=== PATIENT | female | born 1960 | race Hispanic/Latino ===

== ENCOUNTER → 2022-09-11 | Outpatient (CLI) | payer OTHER ==
[~2022-09-11] MED LIST: IOHEXOL-350 50ML VIAL IV ONE
== END | disposition home or self-care (01) ==
LOC: RAH 13:16
PROVIDERS: ATTEND Internal Medicine
DX: G43.909 Migraine, unspecified, not intractable, without status migrainosus (principal)
CPT/HCPCS: 70470; Q9967

== ENCOUNTER → 2023-02-26 | Outpatient (CLI) | payer SELFPAY | END | disposition home or self-care (01) | LOC: RAH 13:33 | PROVIDERS: ATTEND Internal Medicine | DX: Z13.6 Encounter for screening for cardiovascular disorders (principal) | CPT/HCPCS: 75571 ==

== ENCOUNTER 2023-07-10 07:05 | Day surgery (SDC) | payer OTHER ==
[2023-07-04 12:43] LABS: APPEARANCE,URINE CLEAR (CLEAR); BILIRUBIN,URINE NEGATIVE (NEGATIVE); COLOR,URINE LIGHT-YELLOW (YELLOW); GLUCOSE, URINE (UA) NEGATIVE (NEGATIVE); KETONES,URINE NEGATIVE (NEGATIVE); LEUKOCYTE ESTERASE ,URINE NEGATIVE Leu/uL (NEGATIVE); NITRATE,URINE NEGATIVE (NEGATIVE); PH,URINE 5.5 (5.0-8.0); PROTEIN,URINE NEGATIVE (NEGATIVE); UROBILINOGEN,URINE 0.2 mg/dL (0.2-1.0)
[2023-07-04 12:44] LABS: ADD UA MICROSCOPIC YES
[2023-07-04 12:48] LABS: BASOPHILS # (AUTO) 0.03 K/uL (0.00-0.20); BASOPHILS % (AUTO) 0.3 % (0.0-5.0); EOSINOPHILS # (AUTO) 0.14 K/uL (0.00-0.70); EOSINOPHILS % (AUTO) 1.3 % (0.0-8.0); HEMATOCRIT 41.8 % (36-48); IMMATURE GRANULOCYTE ABSOLUTE 0.02 K/uL (0-1); LYMPHOCYTES % (AUTO) 18.6 % (21.0-51.0); MEAN CORPUSCULAR HEMOGLOBIN 29.6 pg (27.0-33.0); MEAN CORPUSCULAR HGB CONC 33.5 g/dL (32.0-36.0); MEAN CORPUSCULAR VOLUME 88.4 fL (79-99); MONOCYTES # (AUTO) 0.6 K/uL (0.1-1.0); MONOCYTES % (AUTO) 5.4 % (3.0-13.0); NEUTROPHILS # (AUTO) 7.9 K/uL (1.8-7.7); NEUTROPHILS % (AUTO) 74.2 % (40.0-77.0); PLATELET COUNT (AUTO) 269 K/uL (130-400); RED BLOOD CELL COUNT(AUTO) 4.73 MIL/uL (4.00-5.50); RED CELL DISTRIBUTION WIDTH 12.5 % (11.0-15.5); WHITE BLOOD COUNT (AUTO) 10.7 K/uL (4.8-10.8)
[2023-07-04 12:48] LABS: BACTERIA,URINE RARE /HPF (None Seen); MUCUS,URINE RARE LPF (None Seen); SQUAMOUS EPITHELIAL CELL,UR RARE /HPF (0-2)
[2023-07-04 12:51] LABS: CREATININE 0.7 mg/dL (0.5-1.5); POTASSIUM 4.1 mmol/L (3.5-5.1)
[2023-07-04 12:54] LABS: INR <= 0.93 (0.85-1.15); PROTHROMBIN TIME 10.6 SEC (9.6-11.6)
[2023-07-04 12:55] VITALS: BP 166/88; PULSE 72; RESP 16
[2023-07-04 12:55] LABS: PARTIAL THROMBOPLASTIN TIME 28.4 SEC (26.3-35.5)
[2023-07-10] VITALS (16 sets, daily range): BP systolic 115–153; BP diastolic 50–73; PULSE 67–86; RESP 15–18
[~2023-07-10] VITALS: Ht 160 cm; Wt 88.1 kg
[~2023-07-10 07:05] MED LIST changes: -IOHEXOL-350 50ML VIAL IV ONE; +ROSU5TAB12 PO
[2023-07-10] MEDS ORDERED: DEXAMETHASONE SOD PHOSPHATE 10MG/ML 1ML VIAL ONE (08:01)
[2023-07-10] MEDS ORDERED: GLYCOPYRROLATE 0.2 MG/ML 5 ML VIAL ONE (08:01)
[2023-07-10] MEDS ORDERED: LIDOCAINE PF 100MG/5ML (2%) SYRINGE 5ML ONE (08:01)
[2023-07-10] MEDS ORDERED: MIDAZOLAM HCL 1 MG/ML 2ML VIAL ONE (08:01)
[2023-07-10] MEDS ORDERED: NEOSTIGMINE METHYLSULFATE 1MG/ML IV ONE (08:01)
[2023-07-10] MEDS ORDERED: ONDANSETRON 4MG INJ ONE (08:01)
[2023-07-10] MEDS ORDERED: PROPOFOL 10 MG/ML 20ML VIAL IV ONE (08:01)
[2023-07-10] MEDS ORDERED: SUCCINYLCHOLINE CHLORIDE 20 MG/ML 10 ML VIAL ONE (08:01)
[2023-07-10] MEDS ORDERED: ROCURONIUM BROMIDE 10MG/1ML 5ML VL ONE (08:02)
[2023-07-10] MEDS ORDERED: FENTANYL CITRATE PF 50 MCG/1 ML 2ML VIAL ONE ×2 (08:02→10:53)
[2023-07-10] MEDS ORDERED: PHENYLEPHRINE HCL 10 MG/ML 1ML VIAL IV ONE (08:05)
[2023-07-10] MEDS: LACTATED RINGERS 1000ML 1,000 ML IV ONE (08:19)
[2023-07-10] MEDS: CEFAZOLIN SODIUM 2 GM VIAL ONE (08:20)
[2023-07-10] MEDS: GENTAMICIN 80 MG/NS 100 ML PB 100 ML IV ONE (08:20)
[2023-07-10] MEDS ORDERED: MELA5TAB20 PO (08:33)
[2023-07-10] MEDS ORDERED: ZINC50TA64 PO (08:33)
[2023-07-10] MEDS ORDERED: VITAMIN B6 PO (08:33)
[2023-07-10] MEDS ORDERED: MAGN250T10 PO (08:33)
[2023-07-10] MEDS ORDERED: ASCO500C18 PO (08:33)
[2023-07-10] MEDS ORDERED: CYAN-106 PO (08:33)
[2023-07-10] MEDS ORDERED: CINN500C PO (08:33)
[2023-07-10] MEDS ORDERED: CHOL100046 PO (08:33)
[2023-07-10] MEDS ORDERED: VITA800012 PO (08:33)
[2023-07-10] MEDS ORDERED: MULT-1283 PO (08:33)
[2023-07-10] MEDS ORDERED: BLAC40CA PO (08:33)
[2023-07-10] MEDS ORDERED: LUTE20CA PO (08:33)
[2023-07-10] MEDS ORDERED: CRANBERRY PO (08:33)
[2023-07-10] MEDS ORDERED: CEFAZOLIN SODIUM 1 GM VIAL ONE ×2 (10:11→10:37)
[2023-07-10] MEDS ORDERED: ESTROGENS,CONJUGATED 0.625 MG/GM 42.5 GM VAG CRM VG ONE (10:12)
[2023-07-10] MEDS ORDERED: LIDOCAINE 1%-EPI 1:100,000 20 ML VIAL ONE (10:12)
[2023-07-10] MEDS: CEFAZOLIN SODIUM 2 GM VIAL IVPB ONE (10:25)
[2023-07-10] MEDS: CEFAZOLIN SODIUM 1 GM VIAL IRRIG ONE (10:55)
[2023-07-10] MEDS: LIDOCAINE 1%-EPI 1:100,000 20 ML VIAL IJ ONE (10:55)
== END 2023-07-10 13:30 | disposition home or self-care (01) ==
LOC: DAH 07:05
PROVIDERS: ATTEND Urology
DX: N39.46 Mixed incontinence (principal); E78.5 Hyperlipidemia, unspecified; E66.9 Obesity, unspecified; Z68.34 Body mass index [BMI] 34.0-34.9, adult; Z82.49 Family history of ischemic heart disease and other diseases of the circulatory system; Z83.3 Family history of diabetes mellitus; Z91.040 Latex allergy status; Z88.0 Allergy status to penicillin; Z88.8 Allergy status to other drugs, medicaments and biological substances; Z79.02 Long term (current) use of antithrombotics/antiplatelets; Z79.899 Other long term (current) drug therapy
CPT/HCPCS: 80048; 85025; 85610; 85730; 87088; 81001; 36415; 71045; 93005; 51992; A4600; A6260; A4663; J7030; A4215 ×2; A4452; A4344; C1771; J7120; J3010 ×2; J0690 ×5; J3490 ×4; J1100; J0330; J2001; J2250; J2704; J2405; J2710; J2371; J1580; A4649; A4930; A4223; A4222; A4221

== ENCOUNTER 2023-09-06 18:16 | Emergency (ER) | payer OTHER ==
[~2023-09-06] VITALS: Ht 160 cm; Wt 88.0 kg
[~2023-09-06 18:16] MED LIST changes: +ASCO500C18 PO; +BLAC40CA PO; +CHOL100046 PO; +CINN500C PO; +CRANBERRY PO; +CYAN-106 PO; +LUTE20CA PO; +MAGN250T10 PO; +MELA5TAB20 PO; +MULT-1283 PO; -ROSU5TAB12 PO; +ROSU5TAB43 PO; +VITA800012 PO; +VITAMIN B6 PO; +ZINC50TA64 PO
[2023-09-06 19:04] LABS: BASOPHILS # (AUTO) 0.06 K/uL (0.00-0.20); BASOPHILS % (AUTO) 0.4 % (0.0-5.0); EOSINOPHILS # (AUTO) 0.03 K/uL (0.00-0.70); EOSINOPHILS % (AUTO) 0.2 % (0.0-8.0); HEMATOCRIT 40.1 % (36-48); IMMATURE GRANULOCYTE ABSOLUTE 0.12 K/uL (0-1); LYMPHOCYTES # (AUTO) 1.4 K/uL (1.0-4.8); LYMPHOCYTES % (AUTO) 9.6 % (21.0-51.0); MEAN CORPUSCULAR HEMOGLOBIN 29.6 pg (27.0-33.0); MEAN CORPUSCULAR HGB CONC 33.4 g/dL (32.0-36.0); MEAN CORPUSCULAR VOLUME 88.5 fL (79-99); MONOCYTES # (AUTO) 0.6 K/uL (0.1-1.0); MONOCYTES % (AUTO) 4.4 % (3.0-13.0); NEUTROPHILS # (AUTO) 11.9 K/uL (1.8-7.7); NEUTROPHILS % (AUTO) 84.5 % (40.0-77.0); PLATELET COUNT (AUTO) 211 K/uL (130-400); RED BLOOD CELL COUNT(AUTO) 4.53 MIL/uL (4.00-5.50); RED CELL DISTRIBUTION WIDTH 12.2 % (11.0-15.5); WHITE BLOOD COUNT (AUTO) 14.1 K/uL (4.8-10.8)
[2023-09-06 19:21] VITALS: BP 135/43; PULSE 82; RESP 16; O2SAT 100
[2023-09-06 19:22] LABS: CREATININE 0.8 mg/dL (0.5-1.0)
[2023-09-06 19:26] LABS: ALBUMIN 3.7 g/dL (3.5-5.0); BILIRUBIN,TOTAL 0.5 mg/dL (0.2-1.0)
[2023-09-06] MEDS: 0.9%NACL 1000ML 1,000 ML IV ONE (19:34)
[2023-09-06] MEDS: MORPHINE 4 MG SYG IVP ONE (19:35)
[2023-09-06] MEDS: ONDANSETRON 4MG INJ IVP ONE (19:36)
[2023-09-06] MEDS: LEVOFLOXACIN 750 MG/D5W 150ML BAG IV ONE (19:38)
[2023-09-06] MEDS ORDERED: IOHEXOL-350 75 ML VIAL IV ONE (20:00)
[2023-09-06] MEDS: TAMSULOSIN HCL 0.4 MG CAP.ER.24H PO ONE (21:09)
[2023-09-06 21:32] LABS: ADD UA MICROSCOPIC YES; APPEARANCE,URINE CLEAR (CLEAR); BILIRUBIN,URINE NEGATIVE (NEGATIVE); COLOR,URINE LIGHT-YELLOW (YELLOW); GLUCOSE, URINE (UA) NEGATIVE (NEGATIVE); KETONES,URINE 40 mg/dL (NEGATIVE); LEUKOCYTE ESTERASE ,URINE NEGATIVE Leu/uL (NEGATIVE); NITRATE,URINE NEGATIVE (NEGATIVE); OCCULT BLOOD,URINE MODERATE (NEGATIVE); PH,URINE 6.5 (5.0-8.0); PROTEIN,URINE NEGATIVE (NEGATIVE); UROBILINOGEN,URINE 0.2 mg/dL (0.2-1.0)
[2023-09-06 21:34] LABS: BACTERIA,URINE RARE /HPF (None Seen); MUCUS,URINE RARE LPF (None Seen); RBC,URINE 26-50 /HPF (0-1); SQUAMOUS EPITHELIAL CELL,UR RARE /HPF (0-2)
[2023-09-06] MEDS ORDERED: TAMS-1 PO (21:59)
[2023-09-06] MEDS ORDERED: LEVO-70 PO (21:59)
[2023-09-06] MEDS ORDERED: IBUP-2077 PO (21:59)
== END 2023-09-06 22:10 | disposition home or self-care (01) ==
LOC: EDH 18:16
DX: N20.0 Calculus of kidney (principal); N23 Unspecified renal colic
CPT/HCPCS: 99285; 74177; 96365; 96366; 84484; 80053; 83690; 85025; 81001; 36415; 93005; J1956; J7030; J2405; J2270; Q9967

== ENCOUNTER → 2025-02-25 | Outpatient (CLI) | payer OTHER ==
[~2025-02-25] MED LIST changes: +IBUP-2077 PO; +LEVO-70 PO; -ROSU5TAB43 PO; +ROSU5TAB51 PO; +TAMS-55 PO
--- NOTE | 2025-02-25 17:19 | HMCSR ---
APPROVED REPORT EXAM: Two-dimensional and M-mode echocardiogram with Doppler and color Doppler. INDICATION ICD: 138.0 systolic murmur 2D Dimensions RVDd 3.9 cm LVEF(%) 69.3 (>50%) LVED Vol(simp.) 83.0 mL IVSd 0.6 (0.7-1.1cm) FS(%) 39 % LVES Vol(simp.) 32.0 mL LVDd 4.8 (3.8-5.6cm) LA (2D) 4.1 (1.6-4.0cm) LVEF(%, simp.) 61 % PWd 0.8 (0.7-1.1cm) Ao Root(2D) 2.7 (2.0-3.7cm) LA ESV INDEX (BP) 24.65 mL/m2 IVSs 1.1 cm LVOT diam 2.0 (1.8-2.4cm) LVDs 2.9 (2.5-4.0cm) PWs 1.3 cm M-Mode Dimensions EPSS 0.4 cm LA (MM) 4.3 (1.6-4.0cm) Ao Root(MM) 2.5 (2.0-3.7cm) Aortic Valve AoV Vmax 1.8 m/s Ao Peak GR 13.2 mmHg LVOT Vmax 1.2 m/s AoV VTI 0.4 m Ao Mean GR 7.3 mmHg LVOT VTI 0.24 m MICHAEL (VMAX) 2.04 cm2 MICHAEL (VTI) 2.0 cm2 Mitral Valve MV E Vmax 76.8 cm/s DECEL Time 202 ms MV A Vmax 74.8 cm/s P 1/2 T 40 ms E/A ratio 1.0 MVA (PHT) 5.5 cm2 TDI E/E' Medial 12.9 E/E' Lateral 11.2 Medial E' Peak V 5.94 cm/s Lateral E' Peak V 6.88 cm/s Pulmonary Valve PV Vmax 1.2 m/s PV VTI 0.26 m PV Mean GR 3.6 mmHg PV Peak GR 5.9 mmHg Left Ventricle The left ventricle is normal size. There is normal LV segmental wall motion. There is normal left ventricular wall thickness. LVEF is 60-65%. The left ventricular diastolic function is normal. Right Ventricle The right ventricle is normal size. The right ventricular systolic function is normal. Atria The left atrium size is normal. The right atrium size is normal. Aortic Valve Aortic valve is trileaflet, thickened and opens well. No aortic regurgitation is present. There is no aortic valvular stenosis. Mitral Valve The mitral valve is normal in structure. There is trivial mitral valve regurgitation noted. There is no mitral valve stenosis. Tricuspid Valve The tricuspid valve is normal in structure. There is trivial tricuspid valve regurgitation noted. Pulmonic Valve The pulmonary valve is normal in structure. There is trace of pulmonic valvular regurgitation. Great Vessels The aortic root is normal in size. The IVC is normal in size and collapses >50% with inspiration. Pericardium There is no pericardial effusion. Other Information Quality : Technically difficult study due to body habitus Conclusion LVEF is 60-65%. The aortic root is normal in size. There is no pericardial effusion.
== END | disposition home or self-care (01) ==
LOC: RAH 12:48
PROVIDERS: ATTEND Internal Medicine
DX: I08.3 Combined rheumatic disorders of mitral, aortic and tricuspid valves (principal)
CPT/HCPCS: 93306

== ENCOUNTER 2025-03-01 06:19 | Day surgery (SDC) | payer OTHER ==
[~2025-03-01] VITALS: Ht 160 cm; Wt 88.9 kg
[2025-03-01] VITALS (11 sets, daily range): BP systolic 129–167; BP diastolic 65–81; PULSE 73–83; RESP 14–18; TEMP 97.1–98.5
[~2025-03-01 06:19] MED LIST changes: -CRANBERRY PO; -IBUP-2077 PO; -LEVO-70 PO; -TAMS-55 PO
[2025-03-01] MEDS: 0.9%NACL 1000ML 1,000 ML IV ONE (06:56)
== END 2025-03-01 09:17 | disposition home or self-care (01) ==
LOC: DAH 06:19 → ENDO 06:19
PROVIDERS: ATTEND Internal Medicine
DX: R13.10 Dysphagia, unspecified (principal); K29.50 Unspecified chronic gastritis without bleeding; E78.5 Hyperlipidemia, unspecified; E66.9 Obesity, unspecified; Z88.0 Allergy status to penicillin; Z68.34 Body mass index [BMI] 34.0-34.9, adult; Z90.49 Acquired absence of other specified parts of digestive tract; Z90.710 Acquired absence of both cervix and uterus; Z98.890 Other specified postprocedural states; Z79.899 Other long term (current) drug therapy
CPT/HCPCS: 43239; 43248; J7030; J2704 ×2; A4620; A4215; J3490

== ENCOUNTER → 2025-03-30 | Outpatient (CLI) | payer OTHER ==
--- NOTE | 2025-03-30 09:12 | HMCIMG ---
DOUBLE CONTRAST UPPER GI SERIES: CLINICAL HISTORY: Dysphagia unspecified diaphragmatic hernia without obstruction or gangrene Findings: The study was performed using provocative maneuvers After swallowing effervescent crystal and thick barium, there is no definite intrinsic or extrinsic lesion seen in the esophagus. Small hiatal hernia with grade 1 esophageal reflux. The stomach is normal in size, shape, and configuration. The rugal folds appear to be normal. The duodenal bulb, duodenal sweep, and upper jejunum appear to be normal. Fluoroscopy time: 0.6 minutes IMPRESSION: Small hiatal hernia with grade 1 esophageal reflux Otherwise NORMAL DOUBLE CONTRAST UPPER GI SERIES.
== END | disposition home or self-care (01) ==
LOC: RAH 07:39
PROVIDERS: ATTEND Surgery
DX: K21.9 Gastro-esophageal reflux disease without esophagitis (principal); K44.9 Diaphragmatic hernia without obstruction or gangrene; R13.10 Dysphagia, unspecified
CPT/HCPCS: 74240